=== PATIENT | male | born 1955 | race Caucasian/White ===

== ENCOUNTER → 2019-05-20 15:50 | Outpatient (CLI) | payer OTHER, SELFPAY ==
--- NOTE | 2019-05-20 | DI.MRI.S_ITS ---
PROCEDURE: MR KNEE RT WO CON INDICATIONS: RIGHT KNEE PAIN TECHNIQUE: Noncontrast sagittal PD fast spin echo and T2 fast spin echo with fat saturation, sagittal 3-D FLASH with fat saturation; coronal T1 spin echo and PD fast spin echo with fat saturation, and axial PD fast spin echo with fat saturation through the knee. COMPARISON: [facility], CR, XR KNEE ARTHRITIC SERIES RT, 04/23/2019, 10:32. FINDINGS: Image quality: Excellent. Menisci: There is amorphous high signal intensity within the anterior horn, body, and posterior horn of the medial meniscus, demonstrating superior and inferior articular surface extension. There is truncation of the free edge of the medial meniscal body. Medial extrusion of the medial meniscus is present. Lateral meniscus demonstrates a discoid configuration. Amorphous high signal intensity within the anterior horn lateral meniscus is present, demonstrating superior articular surface extension. Cruciate ligaments: The anterior and posterior cruciate ligaments appear intact. Medial structures: The medial collateral ligament appears intact. Small amount of fluid deep to the medial collateral ligament is present. Visualized portions of the pes anserinus tendons appear normal. No abnormal bursal fluid. Lateral structures: The lateral collateral ligament, long and short heads of the biceps femoris tendon appear intact. The popliteus tendon appears normal. Iliotibial band appears normal. Anterior structures: The quadriceps and patellar tendons appear intact. Patellar alignment is normal. No femoral trochlear dysplasia or ventral trochlear prominence. Moderate edema in the infrapatellar fat pad. Moderate prepatellar subcutaneous edema. Bones and cartilage: No bone marrow contusions or fractures. There is mild subchondral degenerative marrow edema within the weightbearing aspects of the medial femoral condyle and medial tibial plateau. Moderate tricompartmental periarticular osteophyte formation is present. There is severe diffuse articular cartilage loss overlying the weightbearing aspects of the medial femoral condyle and medial tibial plateau. Joint space: There is a moderate knee joint effusion and a trace Blackwood's cyst. Multiple small intra-articular loose bodies are present. Small ganglion cyst along the popliteus. Normal appearing synovial plicae are incidentally noted. IMPRESSION: 1. Tricompartmental osteoarthritis with associated articular cartilage loss. 2. Medial and lateral meniscal tearing. Discoid lateral meniscus. 3. Medial collateral ligament bursitis. 4. Knee joint effusion with multiple small intra-articular loose bodies. 5. Prepatellar bursitis. Dictated by: Red Hernandez M.D. on 05/21/2019 at 9:04 Approved by: Red Hernandez M.D. on 05/21/2019 at 9:08
== END ==
PROVIDERS: Family Provider Family Medicine; PCP Family Medicine; Referring Provider Family Medicine; Visit Provider Orthopaedic Surgery
DX: M25.561 Pain in right knee (principal); M17.11 Unilateral primary osteoarthritis, right knee; S83.241A Other tear of medial meniscus, current injury, right knee, initial encounter; S83.281A Other tear of lateral meniscus, current injury, right knee, initial encounter; M71.561 Other bursitis, not elsewhere classified, right knee
CPT/HCPCS: 73721

== ENCOUNTER → 2022-09-02 14:40 | Outpatient (CLI) | payer MEDICARE, OTHER, SELFPAY ==
--- NOTE | 2022-09-02 | DI.ECHO.S_ITS ---
[facility] +---------+ [facility] +---------+ : : [address] : : : [place], [place] : : : : [id number] : : : : Phone: [phone]+ Echocardiogram Report + + :Name: TRI ANDREA Study Date: 09/02/2022 Height: 70 in : :[facility] ReadingLocation: Weight: 260 lb : : Gender: Male BSA: 2.3 m2 : :: 1955 Age: 67 yrs BP: 130/76 mmHg: :Reason For Study: Murmur : :Ordering Physician: Dariana, : :Cassy Performed By: Melinda Nolan : :Referring: CASSY MADSEN : + + Interpretation Summary 1) Normal left ventricular thickness, size, wall motion, and systolic function (EF 60-65%). 2) Normal right ventricular size and function. 3) No significant valvular abnormalities. 4) No prior Echo available for comparison. Procedure: A two-dimensional transthoracic echocardiogram with color flow and Doppler was performed. The study quality was technically adequate. There is no prior echocardiogram noted for this patient. A contrast injection of Definity was performed to improve assessment of LV function. The patient was in normal sinus rhythm during the exam. Left Ventricle: The left ventricle is normal in size. There is normal left ventricular wall thickness. The ejection fraction is estimated to be 60-65%. Left ventricular systolic function appears normal without focal wall motion abnormalities. Diastolic parameters suggest probable normal left ventricular diastolic function and normal filling pressures. Right Ventricle: The right ventricle is normal size. The right ventricular systolic function is normal. Atria: The left atrial size is normal. Right atrial size is normal. There is no Doppler evidence for an interatrial shunt. Mitral Valve: The mitral valve leaflets appear normal. There is no evidence of stenosis, fluttering, or prolapse. There is no mitral valve stenosis. There is trace mitral regurgitation. Aortic Valve: The aortic valve is trileaflet. The aortic valve opens well. There is no aortic valve stenosis. No aortic regurgitation is present. Tricuspid Valve: The tricuspid valve is normal. There is no tricuspid stenosis. There is trace tricuspid regurgitation. The right ventricular systolic pressure is estimated to be at least 37 mmHg based on an estimated right atrial pressure of 3 mm Hg. Pulmonic Valve: The pulmonic valve leaflets are thin and pliable; valve motion is normal. There is no pulmonic valvular stenosis. There is no pulmonic valvular regurgitation. Great Vessels: The aortic root is normal size. The ascending aorta is normal in size. The pulmonary artery is normal size. The IVC is of normal diameter and collapses greater than 50% with a sniff. This suggests a low right atrial pressure of 3 mm Hg. Pericardium/ Pleura There is no pericardial effusion. There is no pleural effusion. MMode/2D Measurements & Calculations LVIDd: 5.1 cm LVOT diam: 2.1 cm LVIDs: 4.3 cm Ao root diam: 3.3 cm FS: 15.7 % asc Aorta Diam: 3.2 cm IVSd: 0.90 cm LVPWd: 1.2 cm LV singh. diameter/BSA (cm/m^2): 2.2 LV sys. diameter/BSA (cm/m^2): 1.8 LA A2 area: 20.1 cm2 RA long axis: 4.7 cm LA A4 area: 16.1 cm2 RA area: 12.0 cm2 LA length (vol): 5.4 cm RA vol: 25.9 ml LA vol: 50.5 ml RA : 11.1 ml/m2 LA vol index: 21.6 ml/m2 RVD1 (basal): 3.9 cm LVLs ap4: 6.6 cm LVLd ap2: 8.4 cm TAPSE_phl: 2.8 cm LVLs ap2: 6.7 cm Doppler Measurements & Calculations Ao V2 max: 131.0 cm/sec LVOT Max Candy: 123.0 cm/sec Ao V2 mean: 90.0 cm/sec LV V1 max P.1 mmHg Ao max P.0 mmHg LV V1 VTI: 26.4 cm Ao mean P.0 mmHg IKE(I,D): 3.4 cm2 Ao V2 VTI: 27.1 cm IKE(V,D): 3.3 cm2 sev ratio: 0.97 IKE indexed to BSA (cm^2/m^2): 1.4 MV E max candy: 106.0 cm/sec TR max candy: 293.0 cm/sec MV A max candy: 66.0 cm/sec TR max P.3 mmHg MV E/A: 1.6 PA V2 max: 202.0 cm/sec Med Peak E' Candy: 8.0 cm/sec PA V2 mean: 142.0 cm/sec E/E' med: 13.2 PA mean P.0 mmHg Lat Peak E' Candy: 10.3 cm/sec PA pr(Accel): 5.2 mmHg E/E' lat: 10.3 E/e' average: 11.7 MV dec time: 0.19 sec SV(LVOT): 91.4 ml AV VR_phl: 0.94 IKE(VTI)/BSA_phl: 1.4 MV P1/2t-pr_phl: 56.0 msec Reading Physician:06:30 PM
== END ==
PROVIDERS: Family Provider Family Medicine; PCP Nurse Practitioner Family; Referring Provider Nurse Practitioner Family; Visit Provider Nurse Practitioner Family
DX: R01.1 Cardiac murmur, unspecified (principal); E66.9 Obesity, unspecified; E78.5 Hyperlipidemia, unspecified; I10 Essential (primary) hypertension
CPT/HCPCS: 93306; Q9957

== ENCOUNTER 2022-11-07 09:19 | Day surgery (SDC) | payer MEDICARE, OTHER, SELFPAY ==
--- NOTE | 2022-11-07 | PATH_ITS ---
[facility] Accession Number: [id number] No. of containers..01 Tissue . 01 Material submitted: . colon - TRANSVERSE POLYP . 01 Diagnosis: Transverse Colon Polyp, Biopsy: Colonic mucosa with benign lymphoid aggregate. No dysplasia or neoplasia identified. MRV 11/14/2022 1551 Local . 01 Electronically signed: . Destinee Saeed MD, Pathologist NPI- [id number] . 01 Gross description: . TRANSVERSE POLYP: Received in formalin is 3 fragment(s) of wong, soft tissue measuring 0.6 x 0.4 x 0.2 cm to 0.3 x 0.3 x 0.2 cm submitted entirely in 1 cassette(s) /AAY 11/08/2022 0544 Local . 01 Pathologist provided ICD-10: K63.89 . 01 CPT . 177307 Specimen Comment: A courtesy copy of this report has been sent to [phone] Performed at: 01 [facility] [address] [place] [address] [address], [place], [place] [id number] MD Sonu García MD Phone: [phone]
[2022-11-07 09:53] VITALS: BP 144/91; PULSE 76; RESP 16; TEMP 35.9; O2SAT 97; BMI 37.0
[2022-11-07] MEDS: LACTATED RINGERS 1,000 ML 84 ML IV (10:07)
--- NOTE | 2022-11-07 10:40 | PM.HP.1 ---
History of Present Illness History of Present Illness Date Patient Seen: 11/07/22 Time Patient Seen: 10:40 Chief complaint: Colonoscopy Narrative: Mahesh is a 67 year old man who is here for a colonoscopy. His last 1 was over 10 years ago and no polyps were found. He has no family history of colon cancer. [facility] Medical History (Updated 11/07/22 @ 10:41 by Chandrakant Bain MD) History of BPH HTN (hypertension) Hyperlipemia Personal history of cardiac murmur Surgical History (Updated 11/07/22 @ 09:56 by Zeynep Hanley RN) History of knee replacement procedure of right knee (08/24/19) Social History household members: spouse Smoking Status: Never smoker Meds Home Medications and Allergies Home Medications Medication Instructions Recorded Confirmed Type sodium sul 1.479 gram-potas ch See Rx Instructions PO PER PKG DIR 09/16/22 Rx 0.188 gram-magnes sul 0.225 gram #24 tabs tablet (Sutab) finasteride 5 mg tablet 5 mg PO DAILY 11/07/22 11/07/22 History hydrochlorothiazide 25 mg tablet 25 mg PO DAILY 11/07/22 11/07/22 History losartan 50 mg tablet 50 mg PO DAILY 11/07/22 11/07/22 History pravastatin 20 mg tablet 20 mg PO DAILY 11/07/22 11/07/22 History tamsulosin 0.4 mg capsule 0.4 mg PO DAILY 11/07/22 11/07/22 History Allergies Allergy/AdvReac Type Severity Reaction Status Date / Time No Known Drug Allergies Allergy Verified 11/07/22 09:49 Exam Vital Signs (past 8 hours): - 11/07/22 09:53 Temperature 96.7 F L Pulse Rate 76 Respiratory Rate 16 Blood Pressure 144/91 H Pulse Oximetry 97 Oxygen Delivery Method Room Air Oxygen Delivery Method Room Air Const General: healthy appearing Assessment & Plan Assessment and plan (1) Colon cancer screening: Status: Acute Plan Reviewed the risks and benefits colonoscopy for colon cancer screening and he would like to proceed
--- NOTE | 2022-11-07 11:46 | PM.OP.COLON ---
Operative Date/Time/Diagnoses Date of procedure: 11/07/22 Time of procedure: 11:46 Pre-op diagnosis: Colon cancer screening Post-op diagnosis: same Procedure & Clinicians Study performed: Colonoscopy Same procedure as scheduled: Yes Surgeon: Chandrakant Bain Procedure Notes Procedure in detail: Surgeon: Chandrakant Bain MD Anesthesia: Wagner Peterson CRNA Procedure: The patient was brought to the endoscopy suite, placed in left lateral decubitus position. The patient was connected to monitoring devices. A time-out was performed. Sedation was administered. Once the patient was adequately sedated, a digital rectal exam was performed and was normal. The scope was then inserted and advanced to the cecum where the appendiceal orifice was identified and photographed. The scope was then slowly withdrawn over greater than 6 minutes. The mucosa was thoroughly inspected. There was a 5 mm polyp in the transverse colon. Although we are able to get the cecum the prep was not adequate to visualize all polyps under 1 cm. The scope was retroflexed in the rectum. No other abnormalities were seen. The scope was straightened and removed. The patient was awakened and brought to recovery. Scope withdrawal time: 14 minutes Sedation time: 23 minutes EBL: 5 mL Findings: 1 small polyp in the transverse colon, suboptimal prep Post-procedure Disposition: PACU
[2022-11-07 11:48] VITALS: BP 116/80; PULSE 82; RESP 19; TEMP 36.4; O2SAT 98
[2022-11-07 11:53] VITALS: BP 123/81; PULSE 79; RESP 12; O2SAT 98
[2022-11-07 11:57] VITALS: BP 129/79; PULSE 74; RESP 15; O2SAT 99
[2022-11-07 12:03] VITALS: BP 129/86; PULSE 70; RESP 12; O2SAT 99
== END 2022-11-07 12:20 | disposition home or self-care (01) ==
PROVIDERS: Family Provider Family Medicine; PCP Nurse Practitioner Family; Referring Provider Surgery; Visit Provider Surgery
PROC: 0DJD8ZZ Inspection of Lower Intestinal Tract, Via Natural or Artificial Opening Endoscopic (ICD-10-PCS; CPT 45378; principal; 2022-11-07 10:30)
DX: Z12.11 Encounter for screening for malignant neoplasm of colon (principal)
CPT/HCPCS: G0121; J2704

== ENCOUNTER → 2023-07-14 10:43 | Outpatient (CLI) | payer MEDICARE, OTHER, SELFPAY ==
--- NOTE | 2023-07-14 10:45 | DI.RAD.S_ITS ---
PROCEDURE: XR KNEE LT 3V INDICATIONS: LEFT KNEE PAIN TECHNIQUE: 3 views of the knee were acquired. COMPARISON: None. FINDINGS: Bones: No fractures or dislocations. [id number] tricompartmental osteoarthritis is seen more notably in medial femoral tibial compartment. No significant patellar subluxation. No suspicious bony lesions. Soft tissues: Moderate left suprapatella joint effusion. No suspicious soft tissue calcifications. IMPRESSION: No acute left knee fracture or dislocation. Moderate left suprapatellar joint effusion. [id number] tricompartmental osteoarthritis. Dictated by: Syed Clement M.D. on 07/14/2023 at 11:34 Approved by: Syed Clement M.D. on 07/14/2023 at 11:35
== END ==
PROVIDERS: Family Provider Family Medicine; PCP Nurse Practitioner Family; Referring Provider Physical Medicine & Rehabilitation; Visit Provider Physical Medicine & Rehabilitation
DX: M17.12 Unilateral primary osteoarthritis, left knee (principal); M25.462 Effusion, left knee; M25.562 Pain in left knee
CPT/HCPCS: 73562